=== PATIENT | female | born 1975 | race Hispanic/Latino ===

== ENCOUNTER → 2023-07-14 10:11 | Outpatient (REF) | payer OTHER, SELFPAY ==
[2023-07-14 10:51] LABS: Glycohemoglobin (HgbA1c) 6.1 % (4.0-5.6)
[2023-07-14 11:08] LABS: Urine Albumin Negative (Neg - Trace); Urine Bilirubin Negative (Negative); Urine Character Clear (Clear); Urine Color Yellow; Urine Glucose Negative (Negative); Urine Ketone Negative (Negative); Urine Leukocyte Negative (Negative); Urine Nitrite Negative (Negative); Urine Occult Blood 2+ (Negative); Urine Specific Gravity 1.015 (<1.030); Urine Urobilinogen Negative (Neg - 1+)
[2023-07-14 11:33] LABS: ALT (SGPT) 25 U/L (0-35); AST (SGOT) 27 U/L (14-36); Albumin 4.7 g/dl (3.5-5.0); Alkaline Phosphatase 103 U/L (38-126); Blood Urea Nitrogen 12 mg/dl (7-17); Calcium 8.9 mg/dl (8.4-10.2); Carbon Dioxide 22 mmol/L (22-30); Chloride 107 mmol/L (98-107); Glucose 95 mg/dl (70-99); Potassium 4.2 mmol/L (3.5-5.1); Sodium 138 mmol/L (135-145); Total Bilirubin 0.6 mg/dl (0.2-1.3); Total Protein 7.6 g/dl (6.3-8.2); eGFR > 60.00
[2023-07-14 11:36] LABS: Hemoglobin 12.5 g/dL (12.0-16.0); Mean Corp Hgb Conc. 33.8 g/dL (33.0-37.0); Mean Corpuscular Hgb 27.5 pg (27.0-31.0); Mean Corpuscular Volume 81.5 fL (81.0-99.0); Mean Platelet Volume 11.4 fL (7.4-10.4); Platelet Count 218 10^3/uL (130-400); Red Blood Cell Count 4.54 10^6/uL (4.20-5.40); Red Cell Dist. Width 13.4 % (11.5-14.5); White Blood Cell Count 7.4 10^3/uL (4.8-10.8)
== END ==
LOC: CLINIC 10:11
PROVIDERS: ATTENDING PHYSICIAN Nurse Practitioner Acute Care
DX: R31.9 Hematuria, unspecified (principal); R73.03 Prediabetes
CPT/HCPCS: 36415; 80053; 81003; 81015; 83036; 85027

== ENCOUNTER → 2023-07-15 13:38 | Outpatient (REF) | payer OTHER, SELFPAY | LOC: CLINIC 13:38 | PROVIDERS: ATTENDING PHYSICIAN Nurse Practitioner Acute Care | DX: R31.9 Hematuria, unspecified (principal) | CPT/HCPCS: 76770 ==

== ENCOUNTER 2024-01-07 18:17 | Emergency (ER) | payer SELFPAY ==
[2024-01-07 18:21] VITALS: BP 182/96
[2024-01-07 18:38] LABS: % Basophils 0.3 % (0-2); % Eosinophils 1.7 % (0-6); % Immature Granulocytes 0.2 % (0-0.5); % Lymphocytes 36.2 % (20.5-51.1); % Monocytes 6.2 % (1.7-9.3); % Neutrophils 55.4 % (42.2-75.2); Absolute Eosinophils 0.2 10^3/uL (0-0.7); Absolute Lymphocytes 3.4 10^3/uL (1.2-3.4); Absolute Monocytes 0.6 10^3/uL (0.1-0.6); Absolute Neutrophils 5.3 10^3/uL (1.4-6.5); Hemoglobin 12.1 g/dL (12.0-16.0); Mean Corp Hgb Conc. 34.6 g/dL (33.0-37.0); Mean Corpuscular Hgb 28.3 pg (27.0-31.0); Mean Corpuscular Volume 81.8 fL (81.0-99.0); Mean Platelet Volume 10.7 fL (7.4-10.4); Nucleated Red Blood Cells % 0 %; Platelet Count 181 10^3/uL (130-400); Red Blood Cell Count 4.28 10^6/uL (4.20-5.40); Red Cell Dist. Width 13.9 % (11.5-14.5); Urine Albumin Negative (Neg - Trace); Urine Bilirubin Negative (Negative); Urine Character Clear (Clear); Urine Color Yellow; Urine Glucose Negative (Negative); Urine Ketone Negative (Negative); Urine Leukocyte Negative (Negative); Urine Nitrite Negative (Negative); Urine Occult Blood 2+ (Negative); Urine Urobilinogen Negative (Neg - 1+); White Blood Cell Count 9.5 10^3/uL (4.8-10.8)
[2024-01-07 18:55] LABS: ALT (SGPT) 23 U/L (0-35); AST (SGOT) 27 U/L (14-36); Albumin 4.7 g/dl (3.5-5.0); Alkaline Phosphatase 100 U/L (38-126); Blood Urea Nitrogen 10 mg/dl (7-17); Calcium 9.2 mg/dl (8.4-10.2); Carbon Dioxide 22 mmol/L (22-30); Chloride 107 mmol/L (98-107); Glucose 103 mg/dl (70-99); Potassium 4.1 mmol/L (3.5-5.1); Sodium 143 mmol/L (135-145); Total Bilirubin 0.4 mg/dl (0.2-1.3); Total Protein 7.4 g/dl (6.3-8.2); eGFR > 60.00
[2024-01-07 20:05] LABS: Urine Squamous Cell 0-2 /LPF (Few)
[2024-01-07 20:07] LABS: Urine White Cell 0-2 /HPF (0-5)
[2024-01-07 20:31] VITALS: BMI 30.7
[2024-01-07 20:34] VITALS: BP 153/79
[2024-01-07 21:00] VITALS: BP 138/59
--- NOTE | 2024-01-07 22:25 | ED.GENMED ---
History of Present Illness
General
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
Source: patient
Exam Limitations: none
Time Seen by Provider: 01/07/24 22:20
History of Present Illness
History of Present Illness:
See MDM
Past History
Past History
ED Past Medical History: None
ED Past Surgical History: None
Social History
Tobacco: Non-smoker
Alcohol: None
Phy Exam
Physical Exam
Physical Exam:
See MDM
Course
Orders/Labs/Results
Orders:
Orders
01/07/24 18:24
Complete Blood Count/With Diff Urgent
Comprehensive Metabolic Panel Urgent
HCG, Urine Qualitative Screen Urgent
Date Specimen was Collected: 01/07/24
Time Specimen was Collected: 18:24
Comment: ADD ON
Urine Culture Reflexed from UA [Urinalysis Reflex To Culture] Urgent
Date Specimen was Collected: 01/07/24
Time Specimen was Collected: 18:24
Urine Microscopic Reflex Cult Urgent
01/07/24 22:22
Add On- LAB Urgent
Tests Added?: urine hcg
01/07/24 22:24
Ketorolac [Toradol] 30 mg IV NOW STA
01/08/24 00:00
CT Abd/pelvis W Iv Cont Urgent
Reason For Exam: pelvic pain after intercourse
Abnormal Lab Results
01/07/24
18:24
Hct 35.0 L %
(37.0-47.0)
MPV 10.7 H fL
(7.4-10.4)
Creatinine 0.5 L mg/dL
(0.6-1.0)
Glucose 103 H mg/dl
(70-99)
Ur Occult Blood Reflex 2+ A
(Negative)
Urine RBC 3-6 A /HPF
(0-2)
01/07/24 18:24
01/07/24 18:24
Vital Signs
Initial and Last Documented VS:
Initial Vital Signs
Temp Pulse Resp BP Pulse Ox
98.3 F 73 20 182/96 98
01/07/24 18:21 01/07/24 18:21 01/07/24 18:21 01/07/24 18:21 01/07/24 18:21
Last Documented Vital Signs
Temp Pulse Resp BP Pulse Ox
98.3 F 63 16 141/83 100
01/08/24 01:13 01/08/24 01:13 01/08/24 01:13 01/07/24 23:00 01/07/24 21:11
MDM/Problems Addressed
Differential Diagnosis Includes:
HPI and MDM Narrative:
48-year-old female presenting with lower abdominal pain. Patient states she developed pain after intercourse. She complains of mild discomfort with urination. She denies any bleeding. Motrin is not helping
On exam, she is well-appearing nontoxic but has suprapubic tenderness throughout. Will obtain CT to rule out any sort of pelvic injury
Physical exam
General: Well appearing and non-toxic
HEENT: protecting airway
Neck: appears supple
CV: No evidence of cyanosis
Resp: No accessory muscle use
Abd: Non-distended. Suprapubic tenderness
Extremities: No deformities
Neuro: alert
Psych: Normal affect
Skin: Intact
Problems Addressed including Acute and Chronic Conditions affecting care:
1. Lower abdominal pain after intercourse
Acuity: acute
Prognosis: stable
Details: Patient denies any bleeding. Urinalysis negative. Blood work otherwise within normal limits. Given her pain after intercourse, will obtain CT to rule out any sort of evidence of pelvic injury
Updates
CT consistent with hemorrhagic ovarian cyst on the left. Discussed return precautions
Differential Diagnosis (but not limited to): Pelvic contusion, ovarian cyst
Testing considered: Pelvic cultures
Drug therapy (if applicable): OTC meds, please see d/c instruction regarding Rx drugs
Amount and/or Complexity of Data Reviewed
Clinical info obtained from: Patient
External data reviewed: N/A
Labs I independently reviewed (but not limited to): White blood cell count normal
Radiology: The CT scan was personally and independently reviewed. In addition, official CT report reviewed.
Pulse Ox: not hypoxic
EKG independently reviewed: N/A
Cutting Pressman: N/A
Critical Care: N/A
Risk of Complication:
Social Determinants of health: Good social support
Discussed with other providers: N/A
Escalation of Care includes Admit/Obs: After being observed in the Emergency Department, pt stable for discharge.
Occasional wrong word or 'sound a like' substitutions may have occurred due to the inherent limitations of voice recognition software. Read the chart carefully and recognize, using context, where substitutions have occurred.
*Critical Care Note
Total Time (30-74mins, 75-104mins- exclusive of procedures): Not Applicable
ED Attending Note
-
Portions of this chart may have been created with voice recognition software.� Occasional wrong word or��sound alike� substitutions may have occurred due to the inherent limitations of voice recognition software.
Discharge Plan
Departure
Patient Disposition: Home (Routine Discharge)
Date of Disposition: 01/08/24
Time of Disposition: 01:42
Patient with high blood pressure during this ER visit?: Yes
Discharge Problem:
Hemorrhagic cyst of left ovary
Instructions: Ovarian Cyst ED, BLOOD PRESSURE
Prescriptions:
New
diclofenac potassium 50 mg tablet
50 mg PO BID Qty: 20 0RF
Referrals:
Lexi Herrera NP [Family Provider] -
Activity Restrictions/Additional Instructions:
Please return for any worsening symptoms.
You may return at any time if you have further concerns.
Please follow up with your doctor at the first available appointment, preferably this week.
Thank you for choosing [facility].
Interventions
Interventions:
*Risk Screen - Suicide Last Done: 01/07/24 18:21
*General Assessment Last Done: 01/07/24 18:21
*Neglect/Abuse Screening Last Done: 01/07/24 18:21
ED- Fall Risk Assessment Last Done: 01/07/24 20:32
*ED COVID-19 Vaccine History Last Done: 01/07/24 20:32
ED-Female Genitourinary Assessment Last Done: 01/07/24 20:32
Discharge Date and Time
Print Language: ENGLISH
[2024-01-07 22:31] VITALS: BP 140/82
[2024-01-07 22:32] LABS: HCG, Urine Qualitative Screen Negative
[2024-01-07] MEDS: TORADOL 30 MG IV (22:36)
[2024-01-07 23:00] VITALS: BP 141/83
[2024-01-08 01:13] VITALS: BP 130/86
[2024-01-08 02:38] VITALS: BP 123/81
== END 2024-01-08 02:40 | disposition home or self-care (01) ==
LOC: EMR 18:17
PROVIDERS: Emergency Medicine; EMERGENCY PHYSICIAN Student in an Organized Health Care Education/Training Program; FAMILY PHYSICIAN Nurse Practitioner Adult Health
DX: N83.202 Unspecified ovarian cyst, left side (principal)
CPT/HCPCS: 99284; 96374; 74177; 80053; 81003; 81015; 81025; 85025; Q9967

== ENCOUNTER → 2024-04-12 17:09 | Outpatient (REF) | payer OTHER, SELFPAY | LOC: CLINIC 17:09 | PROVIDERS: ATTENDING PHYSICIAN Nurse Practitioner Adult Health | DX: N76.0 Acute vaginitis (principal) | CPT/HCPCS: 87491; 87591 ==

== ENCOUNTER → 2024-08-14 14:40 | Outpatient (REF) | payer OTHER, SELFPAY | LOC: CLINIC 14:40 | PROVIDERS: ATTENDING PHYSICIAN Nurse Practitioner Adult Health | DX: N76.0 Acute vaginitis (principal) | CPT/HCPCS: 87070 ==

== ENCOUNTER → 2024-08-14 14:58 | Outpatient (REF) | payer OTHER, SELFPAY ==
[2024-08-14 15:40] LABS: Hematocrit 37.7 % (37.0-47.0); Hemoglobin 12.6 g/dL (12.0-16.0); Mean Corp Hgb Conc. 33.4 g/dL (33.0-37.0); Mean Corpuscular Hgb 28.1 pg (27.0-31.0); Mean Corpuscular Volume 84.2 fL (81.0-99.0); Mean Platelet Volume 11.3 fL (7.4-10.4); Platelet Count 201 10^3/uL (130-400); Red Blood Cell Count 4.48 10^6/uL (4.20-5.40); Red Cell Dist. Width 13.3 % (11.5-14.5); White Blood Cell Count 8.5 10^3/uL (4.8-10.8)
[2024-08-14 15:46] LABS: ALT (SGPT) 24 U/L (0-35); AST (SGOT) 24 U/L (14-36); Albumin 4.8 g/dl (3.5-5.0); Alkaline Phosphatase 92 U/L (38-126); Blood Urea Nitrogen 12 mg/dl (7-17); Calcium 9.1 mg/dl (8.4-10.2); Carbon Dioxide 24 mmol/L (22-30); Chloride 106 mmol/L (98-107); Glucose 94 mg/dl (70-99); Potassium 4.4 mmol/L (3.5-5.1); Sodium 140 mmol/L (135-145); Total Bilirubin 0.5 mg/dl (0.2-1.3); Total Protein 7.6 g/dl (6.3-8.2); eGFR > 60.00
[2024-08-15 10:32] LABS: Glycohemoglobin (HgbA1c) 5.8 % (4.0-5.6)
== END ==
LOC: CLINIC 14:58
PROVIDERS: ATTENDING PHYSICIAN Nurse Practitioner Adult Health
DX: R73.03 Prediabetes (principal); N76.0 Acute vaginitis
CPT/HCPCS: 36415; 80053; 83036; 85027